=== PATIENT | female | born 2000 | race Caucasian/White ===

== ENCOUNTER 2023-08-31 11:52 | Emergency (ER) | payer SELFPAY ==
[2023-08-31 13:02] LABS: BASOPHILS ABSOLUTE AUTO 0.04 K/uL (0.00-0.20); BASOPHILS PERCENT AUTO 0.5 % (0.0-1.0); EOSINOPHILS PERCENT AUTO 2.4 % (0.0-6.0); HEMATOCRIT 37.2 % (37.0-47.0); HEMOGLOBIN 12.8 g/dL (12.0-16.0); IMMATURE GRAN ABSOLUTE AUTO 0.02 K/uL (0.00-0.05); IMMATURE GRAN PERCENT AUTO 0.2 % (0.0-0.4); LYMPHOCYTES ABSOLUTE AUTO 1.76 K/uL (1.00-4.80); LYMPHOCYTES PERCENT AUTO 20.8 % (24.0-44.0); MEAN CORPUSCULAR HEMOGLOBIN 32.4 pg (28.0-32.0); MEAN CORPUSCULAR HGB CONC 34.4 g/dL (32.0-36.0); MEAN CORPUSCULAR VOLUME 94.2 fL (83.0-99.0); MEAN PLATELET VOLUME 8.8 fL (9.4-12.3); MONOCYTES ABSOLUTE AUTO 0.58 K/uL (0.00-0.80); MONOCYTES PERCENT AUTO 6.9 % (0.0-8.0); NEUTROPHILS ABSOLUTE AUTO 5.86 K/uL (1.80-7.70); NEUTROPHILS PERCENT AUTO 69.2 % (41.0-71.0); PLATELET COUNT,PLT 309 K/uL (150-400); RED BLOOD CELL COUNT 3.95 M/uL (4.10-5.30); WHITE BLOOD CELL COUNT,WBC 8.46 K/uL (3.9-11.3)
[2023-08-31 13:35] LABS: A/G RATIO 1.1 (0.9-1.6); BILIRUBIN TOTAL 0.1 mg/dL (0.2-1.0); CALCIUM 9.6 mg/dL (8.5-10.1); CARBON DIOXIDE,CO2 24.2 mmol/L (21.0-32.0); CREATININE 0.8 mg/dL (0.6-1.0); EST CRCL DRUG DOSING (CG) 78.56 mL/min; POTASSIUM,K 5.1 mmol/L (3.5-5.1); PROTEIN TOTAL,TP 7.7 g/dL (6.4-8.2)
[2023-08-31 14:21] LABS: BILIRUBIN,URINE NEGATIVE (NEGATIVE); COLOR,URINE YELLOW; GLUCOSE,URINE NEGATIVE (NEGATIVE); KETONES,URINE NEGATIVE (NEGATIVE); LEUKOCYTE ESTERASE,URINE MODERATE (NEGATIVE); NITRITE,URINE NEGATIVE (NEGATIVE); OCCULT BLOOD,URINE MODERATE (NEGATIVE); PROTEIN,URINE NEGATIVE (NEGATIVE); UROBILINOGEN,URINE 0.2 EU/dL (<2.0)
[2023-08-31 14:35] LABS: EPITHELIAL CELLS,URINE FEW (NONE-FEW); RBC,URINE 0-1 (0-2/HPF); WBC,URINE 0-3 (0-5/HPF)
[2023-08-31 14:36] LABS: APPEARANCE,URINE SLT CLOUDY; BACTERIA,URINE 2+ (NEGATIVE); MUCUS,URINE LIGHT (NONE-MOD)
[2023-08-31] MEDS ORDERED: Labetalol 100 MG Tab PO ONE (15:26)
== END 2023-08-31 16:18 | disposition home or self-care (01) ==
LOC: MW.ED 11:52
DX: O20.9 Hemorrhage in early pregnancy, unspecified (principal); O23.41 Unspecified infection of urinary tract in pregnancy, first trimester; Z3A.01 Less than 8 weeks gestation of pregnancy
CPT/HCPCS: 36415; 76801; 80053; 81001; 84702; 85025; 86900; 86901; 87086; 99284; A9270; 87088; 87186; 99283

== ENCOUNTER 2024-05-15 05:15 | Inpatient (IN) | payer MEDICAID ==
[~2024-05-15 05:15] MED LIST: Phenylephrine HCl In 0.9% NaCl 1 MG/10 ML Syringe IVPUSH PRN; dexmedeTOMIDine HCl 200 MCG/2 ML SDV EPIDUR SCH; ePHEDrine 50 MG/ML SDV IVPUSH PRN
[2024-05-15] MEDS ORDERED: Sodium Chloride 0.9% 10 ML Syringe FLUSH PRN (05:19)
[2024-05-15] MEDS ORDERED: Water For Irrigation,Sterile 1,000 ML Container IRR PRN (05:19)
[2024-05-15] MEDS ORDERED: Lidocaine 1% 50 ML MDV INJECT PRN (05:19)
[2024-05-15] MEDS ORDERED: Sodium Chloride 0.9% 2.5 ML Syringe FLUSH PRN (05:19)
[2024-05-15] MEDS ORDERED: Methylergonovine 0.2 MG/1 ML Amp IM PRN (05:19)
[2024-05-15] MEDS ORDERED: Carboprost Tromethamine 250 MCG/1 mL Vial IM PRN (05:19)
[2024-05-15] MEDS ORDERED: Sodium Chloride 0.9% 20 ML SDV IV PRN (05:19)
[2024-05-15] MEDS ORDERED: Lactated Ringers 1,000 ML IV SCH (05:30)
[2024-05-15 05:58] LABS: HEMATOCRIT 27.7 % (37.0-47.0); HEMOGLOBIN 9.8 g/dL (12.0-16.0); MEAN CORPUSCULAR HEMOGLOBIN 32.9 pg (28.0-32.0); MEAN CORPUSCULAR HGB CONC 35.4 g/dL (32.0-36.0); PLATELET COUNT,PLT 271 K/uL (150-400); RED BLOOD CELL COUNT 2.98 M/uL (4.10-5.30); WHITE BLOOD CELL COUNT,WBC 9.66 K/uL (3.9-11.3)
[2024-05-15] MEDS ORDERED: Ondansetron 4 MG/2 ML SDV ONE (07:36)
[2024-05-15] MEDS: Terbutaline 1 MG/ML SDV SUBCUT ONE ×2 (07:58→13:38)
[2024-05-15] MEDS ORDERED: Terbutaline 1 MG/ML SDV SUBCUT PRN (08:59)
[2024-05-15] MEDS: Misoprostol 25 MCG (1/4 of 100 MCG) Tab VAG PRN ×2 (11:10→15:15)
[2024-05-15] MEDS: fentaNYL 100 MCG/2 ML SDV ONE (13:37)
[2024-05-15] MEDS: Bupivacaine 0.5% 30 ML SDV ONE (13:37)
[2024-05-15] MEDS: Terbutaline 1 MG/ML SDV ONE (13:38)
[2024-05-15] MEDS: LANSOPRAZOLE 30MG PO SCH (21:14)
[2024-05-15] MEDS: NIFEdipine 30 MG Tab.ER PO SCH (21:19)
[2024-05-16] MEDS: Oxytocin/0.9 % Sodium Chloride 30 UNIT/500 ML BAG IV SCH ×2 (08:14→18:50)
[2024-05-16] MEDS: Ropivacaine HCl/PF 400 MG in Premix Bag 1 BAG EPIDUR SCH (12:46)
[2024-05-16] MEDS: Ondansetron 4 MG/2 ML SDV IVPUSH PRN (13:32)
[2024-05-16] MEDS: Butorphanol 2 MG/ML SDV IVPUSH PRN (13:55)
[2024-05-16] MEDS: Tranexamic Acid IN NACL,ISO-OS 1,000 MG in Premix Bag 1 BAG IV PRN (18:25)
[2024-05-16] MEDS: Misoprostol 200 MCG Tab PO PRN (18:28)
[2024-05-16] MEDS ORDERED: Lanolin 100% Cream 7 GM Tube TOP PRN (18:39)
[2024-05-16 18:56] LABS: PH,UMBILICAL ARTERIAL 7.259 (7.18-7.38); PH,UMBILICAL VENOUS 7.235 (7.25-7.45)
[2024-05-16] MEDS: fentaNYL 100 MCG/2 ML SDV ONE (19:10)
[2024-05-16] MEDS: Ondansetron 4 MG/2 ML SDV ONE (19:10)
[2024-05-16] MEDS: Bupivacaine 0.5% 30 ML SDV ONE (19:10)
[2024-05-16] MEDS: ceFAZolin 1 GM in Sodium Chloride 0.9% 50 ML IV SCH (19:18)
[2024-05-16] MEDS: Benzocaine/Menthol 20%-0.5% Spray 78 GM Cannister TOP PRN (20:38)
[2024-05-16] MEDS: Witch Hazel Medicated Pads 40/Jar TOP PRN (20:38)
[2024-05-16] MEDS: NIFEdipine 30 MG Tab.ER PO SCH (20:38)
[2024-05-16] MEDS: Acetaminophen 500 MG Tab PO PRN (20:42)
[2024-05-16] MEDS: Ibuprofen 800 MG Tab PO PRN (20:43)
[2024-05-17 05:38] LABS: HEMOGLOBIN 8.4 g/dL (12.0-16.0)
[2024-05-17] MEDS: Pantoprazole 40 MG Tab.CR PO SCH (07:56)
[2024-05-17] MEDS: oxyCODONE 5 MG Tab PO PRN (08:24)
[2024-05-17] MEDS: Docusate Sodium 100 MG Cap PO PRN (09:26)
[2024-05-17] MEDS: Prenatal Multivitamin with Calcium/Folic Acid/Iron Tab PO SCH (09:26)
[2024-05-17] MEDS: Sodium Ferric Gluconate Cmplex 125 MG in Sodium Chloride 0.9% 100 ML IV ONE (11:38)
== END 2024-05-18 11:20 | disposition home or self-care (01) | DRG 807 ==
LOC: MW.OB 05:15 → OBSVTOIN 05-16 18:39 → MW.OB 05-16 21:18
PROVIDERS: ADMIT Obstetrics & Gynecology; ATTEND Obstetrics & Gynecology
PROC: 10D07Z6 Extraction of Products of Conception, Vacuum, Via Natural or Artificial Opening (ICD-10-PCS; principal; 2024-05-16)
PROC: 0HQ9XZZ Repair Perineum Skin, External Approach (ICD-10-PCS; 2024-05-16)
PROC: 10S0XZZ Reposition Products of Conception, External Approach (ICD-10-PCS; 2024-05-16)
PROC: 3E0R3BZ Introduction of Anesthetic Agent into Spinal Canal, Percutaneous Approach (ICD-10-PCS; 2024-05-16)
PROC: 00HU33Z Insertion of Infusion Device into Spinal Canal, Percutaneous Approach (ICD-10-PCS; 2024-05-16)
DX: O10.92 Unspecified pre-existing hypertension complicating childbirth (principal); Z3A.37 37 weeks gestation of pregnancy; Z37.0 Single live birth; O99.02 Anemia complicating childbirth; O32.1XX0 Maternal care for breech presentation, not applicable or unspecified; O62.1 Secondary uterine inertia; O70.0 First degree perineal laceration during delivery; D64.89 Other specified anemias
CPT/HCPCS: 36415; 51702; 59025; 59409; 76805; 76805-26; 82803; 84112; 85014; 85018; 85027; 86592; 86850; 86900; 86901; A9270-GY; J0595; J0665; J0690; J2405; J2590; J2795; J2916; J3010; J3105; J3490